=== PATIENT | female | born 1995 | race American Indian/Alaskan Native ===

== ENCOUNTER 2016-10-23 07:35 | Emergency (ER) | payer OTHER ==
[2016-10-23 08:21] LABS: Basophils % (Auto) 0.5 % (0.0-1.8); Eosinophils % (Auto) 0.7 % (0.0-4.3); Hematocrit 44.2 % (30.3-42.9); Hemoglobin 14.6 gm/dl (10.1-14.3); Mean Corpuscular HGB Conc 33 % (30-34); Mean Corpuscular Hemoglobin 31 pg (28-32); Mean Corpuscular Volume 95 fl (79-97); Platelet Count 285 K/mm3 (140-440); Red Blood Count 4.65 M/mm3 (3.65-5.03); Red Cell Distribution Width 13.2 % (13.2-15.2); White Blood Count 7.7 K/mm3 (4.5-11.0)
[2016-10-23 08:25] LABS: Anion Gap 19 mmol/L; BUN/Creatinine Ratio 8.75; Blood Urea Nitrogen 7 mg/dL (7-17); Calcium 9.7 mg/dL (8.4-10.2); Carbon Dioxide 24 mmol/L (22-30); Chloride 99.8 mmol/L (98-107); Glucose 95 mg/dL (65-100); Potassium 4.2 mmol/L (3.6-5.0); Sodium 139 mmol/L (137-145)
[2016-10-23 09:41] LABS: Urine Drugs of Abuse Note Disclamer
[2016-10-23 10:08] LABS: Bacteria,Urine 1+ /HPF (Negative); Bilirubin,Urine NEG (Negative); Blood,Urine NEG (Negative); Ketones,Urine 20 mg/dL (Negative); Leukocyte Esterase,Urine LG (Negative); Mucus,Urine 2+ /HPF; Nitrite,Urine POS (Negative); Protein,Urine <15 mg/dL mg/dL (Negative); Urobilinogen,Urine < 2.0 mg/dL (<2.0)
--- NOTE | 2016-10-23 10:33 | Emergency Department Report ---
ED Psych HPI - General Chief Complaint: Psych Stated Complaint: BYPOLAR/SCHIZOPHRENIA/ Time Seen by Provider: 10/23/16 10:17 Source: family, EMS, RN notes reviewed Mode of arrival: Ambulatory Limitations: No Limitations - History of Present Illness Initial Comments: 21-year-old female presents to the emergency Department via law enforcement for mental health evaluation. Additional history is obtained from family. Patient has not been taking her psychiatric medications. Family reports the patient has been seeing people and hearing voices. She has stated that people are out to get her. Patient states that she ran away last night. [place] enforcement after the family reported her missing. She states she was running away from the people trying to get her. She denies suicidal or homicidal thoughts. Patient is also denying auditory or visual hallucinations. There are no other complaints. -: Gradual, unknown Associated Psychiatric Symptoms: auditory hallucinations, visual hallucinations , delusions History of same: Yes Quality: constant Improves With: none Worsens With: none Context: not taking psychiatric Associated Symptoms: denies other symptoms Treatments Prior to Arrival: placed on mental he - Related Data Home Medications Medication Instructions Recorded Confirmed Last Taken Benztropine [Cogentin] 0.5 mg PO QHS 10/23/16 10/23/16 Unknown Quetiapine Fumarate [SEROquel] 50 mg PO DAILY 10/23/16 10/23/16 Unknown Quetiapine Fumarate [Seroquel] 100 mg PO QHS 10/23/16 10/23/16 Unknown Allergies Allergy/AdvReac Type Severity Reaction Status Date / Time No Known Allergies Allergy Unverified 10/23/16 07:47 ED Review of Systems ROS: Stated complaint: BYPOLAR/SCHIZOPHRENIA/ Other details as noted in HPI Comment: All other systems reviewed and negative Psychiatric: auditory hallucinations, visual hallucinations ED Past Medical Hx - Past Medical History Previous Medical History?: Yes Hx Psychiatric Treatment: Yes (bipolar, schizophrenia) - Surgical History Past Surgical History?: Yes Additional Surgical History: Tooth surgery - Family History Family history: no significant - Social History Smoking Status: Never Smoker Substance Use Type: Prescribed - Medications Home Medications: Home Medications Medication Instructions Recorded Confirmed Last Taken Type Benztropine [Cogentin] 0.5 mg PO QHS 10/23/16 10/23/16 Unknown History Quetiapine Fumarate [SEROquel] 50 mg PO DAILY 10/23/16 10/23/16 Unknown History Quetiapine Fumarate [Seroquel] 100 mg PO QHS 10/23/16 10/23/16 Unknown History ED Physical Exam - General Limitations: Other General appearance: alert, in no apparent distress - Head Head exam: Present: atraumatic, normocephalic - Eye Eye exam: Present: normal appearance, PERRL, EOMI - ENT ENT exam: Present: normal exam, normal orophraynx, mucous membranes dry - Neck Neck exam: Present: normal inspection, full ROM. Absent: tenderness - Respiratory Respiratory exam: Present: normal lung sounds bilaterally. Absent: respiratory distress - Cardiovascular Cardiovascular Exam: Present: regular rate, normal rhythm, normal heart sounds - GI/Abdominal GI/Abdominal exam: Present: soft, normal bowel sounds. Absent: distended, tenderness - Extremities Exam Extremities exam: Present: normal inspection, full ROM. Absent: tenderness - Back Exam Back exam: Present: normal inspection, full ROM. Absent: tenderness - Neurological Exam Neurological exam: Present: alert, oriented X3. Absent: motor sensory deficit - Psychiatric Psychiatric exam: Present: normal mood, flat affect. Absent: homicidal ideation , suicidal ideation - Skin Skin exam: Present: warm, dry, intact ED Course Vital Signs 10/23/16 07:37 Temperature 98.5 F Pulse Rate 106 H Respiratory 18 Rate Blood Pressure 124/78 O2 Sat by Pulse 99 Oximetry ED Medical Decision Making - Lab Data Result diagrams: 10/23/16 07:56 10/23/16 07:56 - Medical Decision Making Patient has been medically cleared. Form 1013 has been signed and placed on the patient's chart. Patient is awaiting mental health evaluation for inpatient placement. - Differential Diagnosis medication noncompliance, schizoaffective disorder Critical care attestation.: If time is entered above; I have spent that time in minutes in the direct care of this critically ill patient, excluding procedure time. ED Disposition Clinical Impression: Schizoaffective disorder, bipolar type Disposition: DC/TX PSY HOSP/PSY UNIT Is pt being admited?: No Condition: Stable Referrals: PRIMARY CARE, [Primary Care Provider] - 3-5 Days Time of Disposition: 10:33
--- NOTE | 2016-10-23 12:02 | Consultation ---
History of Present Illness - Reason for Consult Consult date: 10/23/16 Reason for consult: Mental Health Evaluation Requesting physician: EH MORENO - Chief Complaint Chief complaint: "I was afraid" - History of Present Psychiatric Illness 21-year-old female presents to the emergency Department via law enforcement for mental health evaluation. Per family, Patient has not been compliant with her psy medications. Today patient is calm and cooperative during assessment. She stated that she ran away from home because she felt "threatened." She denies being threatened by a family member or friend. She stated that she [place] the [place] the police, but was under a house prior to being found. She stated hearing voices during this occurrence telling her to "run away." She denies SI/HI's, AVH's, sleep disturbance, depression, or a poor appetite. She denies recreational drug use or alcohol consumption (etoh). She stated that she takes Risperdal and Cogentin. Medications and Allergies Allergies Allergy/AdvReac Type Severity Reaction Status Date / Time No Known Allergies Allergy Verified 10/23/16 12:30 Home Medications Medication Instructions Recorded Confirmed Last Taken Type Benztropine [Cogentin] 0.5 mg PO QHS 10/23/16 10/23/16 Unknown History Quetiapine Fumarate [SEROquel] 50 mg PO DAILY 10/23/16 10/23/16 Unknown History Quetiapine Fumarate [Seroquel] 100 mg PO QHS 10/23/16 10/23/16 Unknown History Past psychiatric history - Past Medical History Past Surgical History: Other (Teeth Surgery) - past Psychiatric treatment and history Psych: Bipolar, Schizophrenia psychiatric treatment history: [place] [facility] [place] Patient denies fam psy hx. Mental Status Exam - Vital signs Last Vital Signs Temp 98.5 F 10/23/16 07:37 Pulse 106 H 10/23/16 07:37 Resp 18 10/23/16 07:37 BP 124/78 10/23/16 07:37 Pulse Ox 99 10/23/16 07:37 - Exam Narrative exam: ROS (-) depression MSE: Appearance: calm, cooperative Behavior: good eye contact Speech: regular rate and tone Mood: "okay" Affect: mood congruent Thought Process: circumstantial Thought Content: denies SI/HI's and AVH's, paranoid Motor Activity: ambulatory Cognition: a/o x3 Insight: limited Judgment: limited Results Result Diagrams: 10/23/16 07:56 10/23/16 07:56 Abnormal lab results 10/23/16 10/23/16 Range/Units 07:56 08:23 Hgb 14.6 H (10.1-14.3) gm/dl Hct 44.2 H (30.3-42.9) % [place] % (Auto) 7.6 H (0.0-7.3) % Urine WBC (Auto) 38.0 H (0.0-6.0) /HPF All other labs normal. Assessment and Plan Assessment and plan: Impression: Schizophrenia paranoid type. 21-year-old female presents to the emergency Department via law enforcement for mental health evaluation. Per family, Patient has not been compliant with her psy medications. Today patient is calm and cooperative during assessment. She stated that she ran away from home because she felt "threatened." She denies being threatened by a family member or friend. She denies SI/HI's and AVH's at this time. DD: Schizoaffective DO Recommendation/Plan: Continue 1013 with pending placement to [facility]. Start Risperdal 1 mg PO HS for psychosis and Cogentin 0.5 mg PO HS for EPS prevention.
--- NOTE | 2016-10-23 12:59 | Event Note ---
Date: 10/23/16 Ms Bee Harman is the patient's aunt. She can be reached at [phone].
[2016-10-23] MEDS ORDERED: RisperDAL PO SCH (22:00)
[2016-10-24] MEDS: COGENTIN PO SCH ×2 (00:50→22:23)
--- NOTE | 2016-10-24 09:38 | Progress Note ---
Subjective - Reason for Consult Consult date: 10/24/16 Reason for consult: Psychiatry Follow-up - Chief Complaint Chief complaint: "I am okay today" 21-year-old female presents to the emergency Department via law enforcement for mental health evaluation. Per family, Patient has not been compliant with her psy medications. Today patient is calm and and cooperative during assessment. She stated that she is ready to go inpatient, because she wants help. Per the RN notes, patient refused her dinner last night. She stated, "I wasn't hungry." Patient did eat her breakfast this morning. She denies SI/HI's, AVH's, sleep disturbance, or depression. Mental Status Exam - Vital signs Last Vital Signs Temp 98.3 F 10/23/16 19:00 Pulse 89 10/23/16 19:00 Resp 18 10/23/16 19:00 BP 110/68 10/23/16 19:00 Pulse Ox 98 10/23/16 19:00 - Exam Narrative exam: MSE: Appearance: calm, cooperative Behavior: good eye contact Speech: regular rate and tone Mood: "okay" Affect: mood congruent Thought Process: circumstantial Thought Content: denies SI/HI's and AVH's, paranoid Motor Activity: ambulatory Cognition: a/o x3 Insight: limited Judgment: limited Assessment and Plan Impression: 21-year-old female presents to the emergency Department via law enforcement for mental health evaluation. Per family, Patient has not been compliant with her psy medications. Today patient is calm and and cooperative during assessment. She stated that she is ready to go inpatient, because she wants help. She denies SI/HI's and AVH's at this time. Recommendation/Plan: Continue 1013 with with placement to inpatient psy services. increase Risperdal to 2 mg PO HS for psychosis and Cogentin 0.5 mg PO HS for EPS prevention.
[2016-10-24] MEDS ORDERED: RisperDAL PO SCH (15:00)
[2016-10-24] MEDS ORDERED: RisperDAL PO STA (15:02)
[2016-10-24] MEDS: RisperDAL PO SCH ×2 (16:15→22:24)
--- NOTE | 2016-10-25 08:26 | Progress Note ---
Subjective - Reason for Consult Consult date: 10/25/16 Reason for consult: Psychiatry Follow-up - Chief Complaint Chief complaint: "How are you" 21-year-old female presents to the emergency Department via law enforcement for mental health evaluation. Per family, Patient has not been compliant with her psy medications. Today patient is calm and cooperative during assessment. Today patient has poor eye contact and talked to me with her head under the sheets. I asked her was she scared of something, she replied "no." She stated not being hungry this morning. She stated not being hungry yesterday. She denies SI/HI's, AVH's, depression or sleep disturbance. Mental Status Exam - Vital signs Last Vital Signs Temp 98.7 F 10/24/16 20:37 Pulse 92 H 10/24/16 20:37 Resp 16 10/24/16 20:37 BP 123/75 10/24/16 20:37 Pulse Ox 99 10/24/16 20:37 - Exam Narrative exam: MSE: Appearance: calm, cooperative Behavior: poor eye contact Speech: regular rate and tone Mood: "okay" Affect: mood congruent Thought Process: circumstantial Thought Content: denies SI/HI's and AVH's Motor Activity: ambulatory Cognition: a/o x3 Insight: limited Judgment: limited Assessment and Plan Impression: 21-year-old female presents to the emergency Department via law enforcement for mental health evaluation. Per family, Patient has not been compliant with her psy medications. Today patient is calm and cooperative during assessment. Today patient has poor eye contact and talked to me with her head under the sheets. I asked her was she scared of something, she replied "no. " She denies SI/HI's and AVH's. Recommendation/Plan: Continue 1013 with with placement to inpatient psy services. Start Zyprexa Zydis 5 mg PO HS for psychosis, also to stimulate appetite. Cogentin 0.5 mg PO HS for EPS prevention. D/C Risperdal. Monitor patient for adequate nutritional intake.
[2016-10-25] MEDS: RisperDAL PO SCH (10:09)
[2016-10-25] MEDS: COGENTIN PO SCH (23:15)
[2016-10-26] MEDS ORDERED: GEODON IM ONE (15:37)
[2016-10-26] MEDS ORDERED: ATIVAN IM ONE (15:37)
--- NOTE | 2016-10-26 15:43 | Emergency Department Report ---
Blank Doc - Documentation Documentation: The patient was seen and examined. She is agitated and floridly psychotic. She has flight of ideas and is hyperverbal. She appears to be delusional and paranoid. Physical exam doesn't show any signs of toxicity or any signs of respiratory distress. Review of her previous records indicates a likelihood of a UTI. She is placed on Macrobid for that. She was given Geodon and Ativan. Her status report was given to the mental health counselor. Psychiatric basement is appropriate and still pending.
--- NOTE | 2016-10-26 15:53 | Progress Note ---
Subjective - Reason for Consult Consult date: 10/26/16 Reason for consult: psychiatric follow up - Chief Complaint Chief complaint: "No" 21-year-old female presents to the emergency Department via law enforcement for mental health evaluation. Per family, Patient has not been compliant with her psy medications. Today patient is calm and cooperative during assessment. Today patient speaks minimally. She reports hearing voices but otherwise does not acknowledge symptoms. She stated not being hungry this morning. She stated not being hungry yesterday. She denies SI/HI's. Mental Status Exam - Vital signs Last Vital Signs Temp 98.0 F 10/26/16 08:49 Pulse 95 H 10/26/16 08:49 Resp 18 10/26/16 08:49 BP 117/67 10/26/16 08:49 Pulse Ox 98 10/26/16 08:49 - Exam Narrative exam: MSE: Appearance: calm, cooperative Behavior: poor eye contact Speech: regular rate and tone Mood: "okay" Affect: mood congruent Thought Process: circumstantial Thought Content: denies SI/HI. AH-did not describe Motor Activity: ambulatory Cognition: a/o x3 Insight: limited Judgment: limited Assessment and Plan Impression: Psychosis, impairing her ability to function Recommendation/Plan: Continue 1013 with with placement to inpatient psy services. Continue Zyprexa Zydis 5 mg PO HS for psychosis, also to stimulate appetite. Cogentin 0.5 mg PO HS for EPS prevention. D/C Risperdal. Monitor patient for adequate nutritional intake.
[2016-10-26] MEDS: MACROBID PO SCH ×2 (16:22→23:00)
[2016-10-26] MEDS: COGENTIN PO SCH (23:00)
--- NOTE | 2016-10-27 08:23 | Progress Note ---
Subjective - Reason for Consult Consult date: 10/27/16 Reason for consult: Psychiatry Follow-up - Chief Complaint Chief complaint: "Hello to you" 21-year-old female presents to the emergency Department via law enforcement for mental health evaluation. Per family, Patient has not been compliant with her psy medications. Today patient is calm and cooperative during assessment. She stated that she may eat her lunch later when asked about her appetite. Patient has poor eye contact during conversation. She denies SI/HI's, AVH's, and sleep disturbance. Mental Status Exam - Vital signs Last Vital Signs Temp 98.8 F 10/27/16 00:34 Pulse 100 H 10/27/16 00:34 Resp 18 10/27/16 01:18 BP 117/79 10/27/16 00:34 Pulse Ox 99 10/27/16 01:18 - Exam Narrative exam: MSE: Appearance: calm, cooperative Behavior: poor eye contact Speech: regular rate and tone Mood: "okay" Affect: mood congruent Thought Process: circumstantial Thought Content: denies SI/HI's and AVH's Motor Activity: ambulatory Cognition: a/o x3 Insight: limited Judgment: limited Assessment and Plan Impression: 21-year-old female presents to the emergency Department via law enforcement for mental health evaluation. Per family, Patient has not been compliant with her psy medications. Today patient is calm and cooperative during assessment. She stated that she may eat her lunch later when asked about her appetite. She denies SI/HI's and AVH's. Recommendation/Plan: Continue 1013 with with placement to inpatient psy services. Start Zyprexa Zydis 5 mg PO HS for psychosis, also to stimulate appetite. Cogentin 0.5 mg PO HS for EPS prevention. Monitor patient for adequate nutritional intake.
[2016-10-27] MEDS: MACROBID PO SCH ×2 (09:57→22:29)
[2016-10-27] MEDS: COGENTIN PO SCH (22:29)
--- NOTE | 2016-10-28 19:10 | Progress Note ---
Subjective - Reason for Consult Consult date: 10/28/16 Reason for consult: psychiatric follow up - Chief Complaint Chief complaint: "I just want to eat 21-year-old female presents to the emergency Department via law enforcement for mental health evaluation. Per family, Patient has not been compliant with her psy medications. Today patient is calm and cooperative during assessment. Patient has poor eye contact during conversation. She denies SI/HI's, AVH's, and sleep disturbance. She is uncooperative with the interview. Mental Status Exam - Vital signs Last Vital Signs Temp 97.9 F 10/28/16 09:00 Pulse 98 H 10/28/16 09:00 Resp 14 10/28/16 09:00 BP 107/68 10/28/16 09:00 Pulse Ox 99 10/28/16 09:00 - Exam Narrative exam: MSE: Appearance: calm, uncooperative Behavior: poor eye contact Speech: regular rate and tone Mood: would not discuss Affect: mood congruent Thought Process: unable to assess Thought Content: denies SI/HI. Motor Activity: ambulatory Cognition: a/o x3 Insight: limited Judgment: limited Assessment and Plan Impression: Psychosis, impairing her ability to function Recommendation/Plan: Continue 1013 with with placement to inpatient psy services. Continue Zyprexa Zydis 5 mg PO HS for psychosis, also to stimulate appetite. Cogentin 0.5 mg PO HS for EPS prevention. Monitor patient for adequate nutritional intake.
[2016-10-28] MEDS: MACROBID PO SCH ×2 (22:23→23:17)
[2016-10-28] MEDS: COGENTIN PO SCH (23:17)
[2016-10-29] MEDS: MACROBID PO SCH ×2 (10:05→20:13)
[2016-10-29 11:19] VITALS: BP 122/73
--- NOTE | 2016-10-29 13:09 | Progress Note ---
Subjective - Reason for Consult Consult date: 10/29/16 Reason for consult: Psychosis/Noncompliant with medications - Chief Complaint Chief complaint: "I have been off my medications for time now. " 21-year-old female noncompliant with therapy. Today, she is denying symptoms of auditory and visual hallucinations. No command hallucinations. Mental Status Exam - Vital signs Last Vital Signs Temp 98 F 10/29/16 09:10 Pulse 88 10/29/16 09:10 Resp 16 10/29/16 09:10 BP 122/73 10/29/16 09:10 Pulse Ox 98 10/29/16 09:10 - Exam Orientation: time, place, person Affect: flat Mood: calm Thought content: other (None) Thought Process: Intact Perceptions: none Speech: slow Concentration: focused Motor activity: normal Level of consciousness: alert Memory: Intact Sleep Symptoms: None Appetite: increased Interaction: cooperative Assessment and Plan - Patient Problems (1) Schizoaffective disorder, bipolar type Status: Acute Plan to address problem: Plan: 1. Continue current regimen as ordered and follow up with outpatient psychiatry. 2. Rescind 1013 as patient is no acute risk to harm herself or anyone at current time. Patient's mother has agreed to pick her up. Patient to follow up with outpatient psychiatry.
[2016-10-29] MEDS: COGENTIN PO SCH (20:15)
== END 2016-10-29 20:37 | disposition home or self-care (01) ==
LOC: EEVIPCON 07:35 → ED 07:35
DX: F25.0 Schizoaffective disorder, bipolar type (principal)
CPT/HCPCS: 36415; 80048; 80307; 81001; 81025; 85025; 96372; 99284; G0480; J2060; J3486; 80320